=== PATIENT | male | born 1960 | race Caucasian/White ===

== ENCOUNTER → 2016-12-24 | Outpatient (CLI) | payer BC | END | disposition home or self-care (01) | LOC: ORTHO 03:51 | DX: M17.12 Unilateral primary osteoarthritis, left knee (principal); M25.562 Pain in left knee ==

== ENCOUNTER → 2022-07-19 | Outpatient (CLI) | payer BC | LOC: CT 11:56 | PROVIDERS: ATTEND Family Medicine | DX: N20.0 Calculus of kidney (principal); E11.9 Type 2 diabetes mellitus without complications; I70.0 Atherosclerosis of aorta; I25.10 Atherosclerotic heart disease of native coronary artery without angina pectoris ==

== ENCOUNTER → 2022-08-03 | Outpatient (CLI) | payer BC | END | disposition home or self-care (01) | LOC: MRI 00:21 | PROVIDERS: ATTEND Specialist | DX: H91.92 Unspecified hearing loss, left ear (principal) ==